=== PATIENT | female | born 1965 | race Caucasian/White ===

== ENCOUNTER 2017-02-21 14:11 | Emergency (ER) | payer OTHER ==
[~2017-02-21] VITALS: Ht 167.6 cm; Wt 95.0 kg
[~2017-02-21 14:11] MED LIST: ANT25 PO; CLN150 PO; IBUP-1050 PO
[2017-02-21 14:41] VITALS: TEMP 37.3; Ht 167.6 cm; Wt 95.0 kg
[2017-02-21] MEDS ORDERED: SODIUM CHLORIDE 0.9% 1000ML 1,000 ML IV STA (15:21)
[2017-02-21 15:46] LABS: BASO % 0.2 %; BASO ABS # 0.02 K/uL (0-0.2); COMPLETE YES; EOS % 0.5 %; HEMATOCRIT 35.3 % (37-47); IG% 0.2 %; LYMPH % 18.1 %; LYMPH ABS # 1.51 K/uL (1.2-3.4); MEAN CELL VOLUME 89.8 fL (80-100); MEAN CORPUSCULAR HEMOGLOBIN 29.8 pg (25-34); MEAN CORPUSCULAR HGB CONC 33.1 g/dl (32-36); MEAN PLATELET VOLUME 9.8 fL (7.4-10.4); PLATELET COUNT 248 K/uL (130-400); RED BLOOD COUNT 3.93 M/uL (4.2-5.4); WHITE BLOOD COUNT 8.36 K/uL (4.8-10.8)
[2017-02-21] MEDS ORDERED: ACET-1311 PO (15:46)
[2017-02-21 16:06] LABS: BUN/CREATININE RATIO 15.3 (10-20); CREATININE 0.77 mg/dl (0.60-1.20); POTASSIUM 3.6 mmol/L (3.5-5.1)
[2017-02-21 16:10] LABS: PREG INTERNAL NEGATIVE QC NEG CLEAR BACKGROUND; PREG INTERNAL POSITIVE QC POS CONTROL LINE
--- NOTE | 2017-02-21 16:23 | DIAGNOSTIC IMAGING REPORT ---
CT SCAN OF THE ABDOMEN AND PELVIS WITHOUT CONTRAST CLINICAL HISTORY: Left flank pain COMPARISON STUDY: No previous studies for comparison. TECHNIQUE: CT scan of the abdomen and pelvis was performed from the lung bases to the proximal femurs. Images are reviewed in the axial, sagittal, and coronal planes. IV contrast was not administered for this examination. CT DOSE: 1024.76 mGycm FINDINGS: Lower chest: There is mild bibasilar atelectasis. There is a small fat-containing left-sided Bochdalek hernia. Liver: There is subtle hypodensity present within the posterior aspect of the right lobe of the liver. While not definite, I suspect that this is artifactual. Gallbladder: Surgically absent Spleen: Normal in size and attenuation. Pancreas: Unremarkable. Adrenal glands: Unremarkable. Kidneys: No renal calculi are visualized. There are atrophic changes with thin the medial aspect of the upper pole of the left kidney. An angiomyolipoma could appear similar but is felt to be less likely. No ureteral or bladder calculi are visualized. Bowel: There are no transition zones indicate bowel obstruction. The appendix appears normal. There is no acute diverticulitis. Peritoneum: There is no intraperitoneal free air or abdominal ascites. There is a small fat-containing umbilical hernia. Vasculature: The abdominal aorta is normal in course and caliber. Adenopathy: There are small pelvic lymph nodes at the upper limits of normal in size. There is no pathologic adenopathy by size criteria. Pelvic viscera: The bladder, and pelvic viscera are unremarkable. Skeletal structures: No destructive osseous lesions are seen. IMPRESSION: 1. No renal, ureteral, or lateral calculi identified 2. No evidence of bowel obstruction. No evidence of free air 3. Normal appendix. No evidence of acute diverticulitis 4. Fatty replacement of the medial cortex of the upper pole the left kidney, likely secondary to scarring/atrophy. Electronically signed by: Mihai Conley M.D. 02/21/2017 4:22 PM Dictated Date/Time: 02/21/2017 4:05 PM
[2017-02-21 17:02] LABS: URINE APPEARANCE CLEAR (CLEAR); URINE BILIRUBIN NEG (NEG); URINE COLOR YELLOW; URINE NITRITE NEG (NEG); URINE PH 6.5 (4.5-7.5); URINE SPECIFIC GRAVITY 1.008 (1.000-1.030); UROBILINOGEN NEG (NEG); ZZUR CULT IF INDIC CLEAN CATCH YES
[2017-02-21 17:03] LABS: MANUAL MICROSCOPIC REQUIRED? NO; REVIEW REQ? NO
[2017-02-21] MEDS ORDERED: CEFTRIAXONE SOD INJ 1 GM ADDVIAL IV STA (17:09)
[2017-02-21 18:33] VITALS: BP 110/60; PULSE 65; O2SAT 97
[2017-02-21] MEDS ORDERED: SULFAMETHOXAZOLE/TRIMETHOPRIM DS 800/160MG TAB PO STA (18:54)
[2017-02-21] MEDS ORDERED: SULF800T23 PO (19:00)
--- NOTE | 2017-02-22 00:24 | EMERGENCY ROOM VISIT NOTE ---
History Report prepared by Rahul: Alex Narvaez Under the Supervision of: Dr. Jalen Hummel M.D. First contact with patient: 15:21 Chief Complaint: FLANK PAIN Stated Complaint: LEFT KIDNEY PAIN History of Present Illness The patient is a 51 year old female who presents to the Emergency Room with complaints of waxing and waning bilateral flank pain beginning several hours prior to arrival. She currently rates her discomfort as a 2/10 in severity. The patient associates nausea with today's symptoms. She states the pain began this morning, in which, the left flank pain was worse than the right. The patient notes she went to Dr. Colunga's office, who found hematuria. She states the provider referred the patient to the ED for a work up with concern for a kidney stone and/or kidney infection. The patient also complains of flu-like symptoms beginning five days ago that includes body aches, headache, hot and cold flashes , decreased appetite, and right gland pain. Pt denies LOC, fever, diaphoresis, visual changes, neck pain, chest pain, breathing difficulties, vomiting, abdominal pain, melena, hematochezia, numbness, weakness, rash, or other complaints. Source of History: patient Onset: several hours [employer] Position: back (bilateral flank) Symptom Intensity: 2/10 Timing: waxes/wanes Associated Symptoms: + back pain, + headache, + nausea Note: Associated symptoms: body aches, hot and cold flashes, decreased appetite, and right gland pain Review of Systems See HPI for pertinent positives and negatives. A total of ten systems were reviewed and were otherwise negative. Past Medical & Surgical Medical Problems: (1) Rotator cuff arthropathy (2) Vertigo Surgical Problems: (1) S/P cholecystectomy (2) S/P tubal ligation Family History Cancer Diabetes mellitus Social History Smoking Status: Never Smoker Alcohol Use: occasionally Marital Status: Housing Status: lives with family Occupation Status: employed Current/Historical Medications Scheduled Sulfa/Trimethoprim (Bactrim Ds 800MG/160MG), 1 TAB PO BID Scheduled PRN Acetaminophen (Tylenol), 650 MG PO Q6 PRN for Pain Allergies Coded Allergies: No Known Allergies (Verified , 02/21/17) Physical Exam Vital Signs Date Time Temp Pulse Resp B/P Pulse Ox O2 Delivery O2 Flow Rate FiO2 02/21/17 18:33 65 16 110/60 97 Room Air 02/21/17 16:50 68 16 120/63 97 Room Air 02/21/17 14:41 37.3 86 20 109/74 96 Room Air Physical Exam GENERAL: Awake, alert, well-appearing, in no distress HENT: Normocephalic, atraumatic. Oropharynx unremarkable. EYES: Normal conjunctiva. Sclera non-icteric. NECK: Supple. No nuchal rigidity. FROM. No JVD. RESPIRATORY: Clear to auscultation. CARDIAC: Regular rate, normal rhythm. Extremities warm and well perfused. Pulses equal. ABDOMEN: Soft, non-distended. No tenderness to palpation. No rebound or guarding. No masses. RECTAL: Deferred. MUSCULOSKELETAL: Chest examination reveals no tenderness. The back is symmetrical on inspection without obvious abnormality. Left CVA tenderness to palpation. No joint edema. LOWER EXTREMITIES: Calves are equal size bilaterally and non-tender. No edema. No discoloration. NEURO: Normal sensorium. No sensory or motor deficits noted. SKIN: No rash or jaundice noted. Medical Decision & Procedures ER Provider Diagnostic Interpretation: CT: Radiology results as stated below per my review and radiologist interpretation CT SCAN OF THE ABDOMEN AND PELVIS WITHOUT CONTRAST CLINICAL HISTORY: Left flank pain COMPARISON STUDY: No previous studies for comparison. TECHNIQUE: CT scan of the abdomen and pelvis was performed from the lung bases to the proximal femurs. Images are reviewed in the axial, sagittal, and coronal planes. IV contrast was not administered for this examination. CT DOSE: 1024.76 mGycm FINDINGS: Lower chest: There is mild bibasilar atelectasis. There is a small fat-containing left-sided Bochdalek hernia. Liver: There is subtle hypodensity present within the posterior aspect of the right lobe of the liver. While not definite, I suspect that this is artifactual. Gallbladder: Surgically absent Spleen: Normal in size and attenuation. Pancreas: Unremarkable. Adrenal glands: Unremarkable. Kidneys: No renal calculi are visualized. There are atrophic changes with thin the medial aspect of the upper pole of the left kidney. An angiomyolipoma could appear similar but is felt to be less likely. No ureteral or bladder calculi are visualized. Bowel: There are no transition zones indicate bowel obstruction. The appendix appears normal. There is no acute diverticulitis. Peritoneum: There is no intraperitoneal free air or abdominal ascites. There is a small fat-containing umbilical hernia. Vasculature: The abdominal aorta is normal in course and caliber. Adenopathy: There are small pelvic lymph nodes at the upper limits of normal in size. There is no pathologic adenopathy by size criteria. Pelvic viscera: The bladder, and pelvic viscera are unremarkable. Skeletal structures: No destructive osseous lesions are seen. IMPRESSION: 1. No renal, ureteral, or lateral calculi identified 2. No evidence of bowel obstruction. No evidence of free air 3. Normal appendix. No evidence of acute diverticulitis 4. Fatty replacement of the medial cortex of the upper pole the left kidney, likely secondary to scarring/atrophy. Electronically signed by: Mihai Conley M.D. 02/21/2017 4:22 PM Laboratory Results 02/21/17 15:30 Red Blood Count 3.93, Mean Corpuscular Volume 89.8, Mean Corpuscular Hemoglobin 29.8, Mean Corpuscular Hemoglobin Concent 33.1, Mean Platelet Volume 9.8, Neutrophils (%) (Auto) 70.0, Lymphocytes (%) (Auto) 18.1, Monocytes (%) (Auto) 11.0, Eosinophils (%) (Auto) 0.5, Basophils (%) (Auto) 0.2, Neutrophils # (Auto ) 5.85, Lymphocytes # (Auto) 1.51, Monocytes # (Auto) 0.92, Eosinophils # (Auto ) 0.04, Basophils # (Auto) 0.02 02/21/17 15:30 Test 02/21/17 15:30 02/21/17 16:40 White Blood Count 8.36 K/uL (4.8-10.8) Red Blood Count 3.93 M/uL (4.2-5.4) Hemoglobin 11.7 g/dL (12.0-16.0) Hematocrit 35.3 % (37-47) Mean Corpuscular Volume 89.8 fL (80-100) Mean Corpuscular Hemoglobin 29.8 pg (25-34) Mean Corpuscular Hemoglobin Concent 33.1 g/dl (32-36) Platelet Count 248 K/uL (130-400) Mean Platelet Volume 9.8 fL (7.4-10.4) Neutrophils (%) (Auto) 70.0 % Lymphocytes (%) (Auto) 18.1 % Monocytes (%) (Auto) 11.0 % Eosinophils (%) (Auto) 0.5 % Basophils (%) (Auto) 0.2 % Neutrophils # (Auto) 5.85 K/uL (1.4-6.5) Lymphocytes # (Auto) 1.51 K/uL (1.2-3.4) Monocytes # (Auto) 0.92 K/uL (0.11-0.59) Eosinophils # (Auto) 0.04 K/uL (0-0.5) Basophils # (Auto) 0.02 K/uL (0-0.2) RDW Standard Deviation 44.7 fL (36.4-46.3) RDW Coefficient of Variation 13.5 % (11.5-14.5) Immature Granulocyte % (Auto) 0.2 % Immature Granulocyte # (Auto) 0.02 K/uL (0.00-0.02) Anion Gap 4.0 mmol/L (3-11) Est Creatinine Clear Calc Drug Dose 101.5 ml/min Estimated GFR () 104.3 Estimated GFR (Non- 90.0 BUN/Creatinine Ratio 15.3 (10-20) Calcium Level 9.0 mg/dl (8.5-10.1) Total Bilirubin 0.3 mg/dl (0.2-1) Direct Bilirubin 0.1 mg/dl (0-0.2) Aspartate Amino Transf (AST/SGOT) 24 U/L (15-37) Alanine Aminotransferase (ALT/SGPT) 46 U/L (12-78) Alkaline Phosphatase 111 U/L (45-117) Total Protein 7.9 gm/dl (6.4-8.2) Albumin 3.1 gm/dl (3.4-5.0) Lipase 106 U/L (73-393) Human Chorionic Gonadotropin, Qual NEG (NEG) Urine Color YELLOW Urine Appearance CLEAR (CLEAR) Urine pH 6.5 (4.5-7.5) Urine Specific [place] 1.008 (1.000-1.030) Urine Protein NEG (NEG) Urine Glucose (UA) NEG (NEG) Urine Ketones NEG (NEG) Urine Occult Blood TRACE (NEG) Urine Nitrite NEG (NEG) Urine Bilirubin NEG (NEG) Urine Urobilinogen NEG (NEG) Urine Leukocyte Esterase LARGE (NEG) Urine WBC (Auto) >30 /hpf (0-5) Urine RBC (Auto) 0-4 /hpf (0-4) Urine Hyaline Casts (Auto) 0 /lpf (0-5) Urine Epithelial Cells (Auto) 10-20 /lpf (0-5) Urine Bacteria (Auto) 3+ (NEG) Laboratory results reviewed by me Medications Administered Medications (Trade) Dose Ordered Sig/Ave Route Start Time Stop Time Status Last Admin Dose Admin Sodium Chloride (Nss 1000ml) 1,000 ml @ 125 mls/hr Q8H STAT IV 02/21/17 15:21 02/21/17 20:01 DC 02/21/17 15:21 125 MLS/HR Ceftriaxone Sodium (Rocephin Inj) 1 gm NOW STAT IV 02/21/17 17:09 02/21/17 17:12 DC 02/21/17 17:19 1 GM Trimethoprim/ Sulfamethoxazole (Septra Ds 800/ 160MG Tab) 1 tab NOW STAT PO 02/21/17 18:54 02/21/17 18:55 DC 02/21/17 19:03 1 TAB ED Course 1521: Ordered Sodium Chloride 1,000 ml @ 125 mls/hr IV. 1538: The patient was evaluated in room B12B. A complete history and physical exam was performed. 1709: Ordered Rocephin Inj 1 gm IV. 1715: Reevaluated and updated the patient at this time, and she is feeling better. 1854: Ordered Trimethoprim/Sulfamethoxazole 1 tab PO. 1856: I reevaluated the patient, and he is feeling well. Discussed results and discharge instructions: He verbalized understanding and agreement. The patient is ready for discharge. Medical Decision Prior records/ancillary studies reviewed. Triage Nursing notes reviewed and agree them. Additional history obtained from the family. The patient's history was concerning for flank and abdominal pain. Differential diagnosis: Etiologies such as renal colic, appendicitis, diverticulitis, mesenteric ischemia, aortic pathology, infections, inflammatory bowel disease, PUD, biliary pathology, UTI, as well as others were entertained. Physical examination findings: As above. ER treatment provided: Patient declined analgesia IV hydration with normal saline IV Rocephin On reassessment the patient felt better. Diagnostic interpretation by me: The labs revealed an unremarkable CBC except for mild anemia. Urinalysis is concerning for infection. Her chemistry panel, LFTs, lipase and test were negative. Urinalysis revealed hematuria. There was no sign of UTI. Imaging studies: CT of the abdomen and pelvis as above. It appears that the patient has mild pyelonephritis with the flank pain and findings concerning for infection. No sign of kidney stone. Clinically she looks well. I will treat her with Bactrim as an outpatient. By the evaluation outlined above emergent etiologies such as appendicitis, diverticulitis, mesenteric ischemia, aortic pathology, infections, inflammatory bowel disease, PUD, biliary pathology, ureterolithiasis as well as others were deemed relatively unlikely. The patient was informed about the findings as listed above. All questions were answered and she was pleased with the treatment. Return instructions were outlined and the patient was discharged in stable condition. Outpatient prescription management: Bactrim Patient declined prescription pain medicine Referral: The patient was referred back to her primary care physician for follow-up in 3 days for a recheck of the current condition. The chart was completed utilizing [employer] Speech voice recognition software. Grammatical errors, random word insertions, pronoun errors, and incomplete sentences are an occasional consequence of this system due to software limitations, ambient noise, and hardware issues. Any formal questions or concerns about the content, text, or information contained within the body of this dictation should be directly addressed to the physician for clarification. Impression Primary Impression: Pyelonephritis Additional Impression: Left flank pain Scribe Attestation The scribe's documentation has been prepared under my direction and personally reviewed by me in its entirety. I confirm that the note above accurately reflects all work, treatment, procedures, and medical decision making performed by me. Departure Information Dispostion Home / Self-Care Prescriptions Sulfa/Trimethoprim (Bactrim Ds 800MG/160MG) Tab 1 TAB PO BID, #13 TAB Prov: Jalen Hummel MD 02/21/17 Referrals Meghan Shultz D.O. (PCP) Forms HOME CARE DOCUMENTATION FORM, IMPORTANT VISIT INFORMATION Patient Instructions My [facility] Additional Instructions URINARY TRACT INFECTION INSTRUCTIONS: Trimethoprim-Sulfamethoxazole(Bactrim DS): Take one pill twice daily for 7 days for your urine infection. All antibiotics can cause diarrhea. If this occurs and you feel worse or it does not resolve in 1-2 days follow up with your doctor or return to the Emergency Department as this could be signs of serious underlying problems. Any medication can cause an allergic reaction, stop the pills immediately and return to the ER for rash, hives, breathing difficulties, or swelling. Ibuprofen(Motrin, Advil) may be used for fever or pain. Use 600mg every six hours as needed. Take with food. Avoid using more than 2400mg in a 24 hour period. Do not use 2400mg per day for more than three consecutive days without physician direction. Prolonged inappropriate use can lead to stomach upset or ulcers. (AND/OR) Acetaminophen(Tylenol) may be used for fever or pain. Use 1000mg every six hours as needed. Avoid using more than 4000mg in a 24 hour period. Rest and drink plenty of fluids. Continue current medications. Return to the ER immediately for worsening or persistent abdominal pain, vomiting, fevers, back or flank pain, worsening of your condition, or as needed. Follow up with your primary physician within 3 days for a recheck of the current condition. Problem Qualifiers
== END 2017-02-21 19:04 | disposition home or self-care (01) ==
LOC: C.EDB 14:12
DX: N11.1 Chronic obstructive pyelonephritis (principal); Z98.51 Tubal ligation status; Z90.49 Acquired absence of other specified parts of digestive tract; Z80.9 Family history of malignant neoplasm, unspecified; Z83.3 Family history of diabetes mellitus

== ENCOUNTER 2017-03-04 12:38 | Emergency (ER) | payer OTHER ==
[~2017-03-04] VITALS: Ht 165.1 cm; Wt 93.0 kg
[~2017-03-04 12:38] MED LIST changes: +ACET-1311 PO; -ANT25 PO; -CLN150 PO; -IBUP-1050 PO; +SULF800T23 PO
[2017-03-04 12:44] VITALS: TEMP 36.8; Ht 165.1 cm; Wt 93.0 kg
[2017-03-04] MEDS ORDERED: KETOROLAC TROMETHAMINE 30 MG/ML VIAL IV STA (12:59)
[2017-03-04] MEDS ORDERED: HYDROmorphone INJ 1 MG/ML SYR IV STA (12:59)
[2017-03-04] MEDS ORDERED: SODIUM CHLORIDE 0.9% 1000ML 1,000 ML IV STA (12:59)
[2017-03-04] MEDS ORDERED: METOCLOPRAMIDE HCL INJ 5 MG/ML 2 ML VIAL IV STA (12:59)
--- NOTE | 2017-03-04 13:13 | EMERGENCY ROOM VISIT NOTE ---
History Report prepared by Rahul: Kavon Ureña Under the Supervision of: Dr. Betito Nava M.D. First contact with patient: 12:46 Chief Complaint: ABDOMINAL PAIN Stated Complaint: BOTH KIDNEY PAIN Nursing Triage Summary: pt sent in for bilateral flank pain and was being treated for one but feels pain is getting worse and is now on bilateral sides History of Present Illness The patient is a 51 year old female who presents to the Emergency Room with complaints of constant bilateral flank pain beginning yesterday. She currently rates her discomfort as a 5/10 in severity. The patient states that she is currently on her menstrual cycle, is experiencing abdominal cramps, but denies any chance of retaining a tampon. She reports that she had a CT scan 10 days ago and was put on Bactrim that she finished yesterday. The patient notes that she has a history of a cholecystectomy but denies an appendectomy. She denies a burning sensation and changes in her urinary frequency. The patient reports that she has not seen a federal court of appeals law clerk or urologist about her current symptoms. Source of History: patient Onset: yesterday Position: back (bilateral flank) Quality: other (5/10) Timing: constant Associated Symptoms: + abdominal pain (cramps), No urinary symptoms Review of Systems See HPI for pertinent positives & negatives. A total of 10 systems reviewed and were otherwise negative. Past Medical & Surgical Medical Problems: (1) Rotator cuff arthropathy (2) Vertigo Surgical Problems: (1) S/P cholecystectomy (2) S/P tubal ligation Family History Cancer Diabetes mellitus Social History Smoking Status: Never Smoker Alcohol Use: occasionally Marital Status: Housing Status: lives with family Occupation Status: employed Current/Historical Medications Scheduled Ibuprofen Tab (Advil), 600 MG PO Q6H Sulindac (Clinoril), Unknown Dose PO BID Scheduled PRN Acetaminophen (Tylenol), 650 MG PO Q6 PRN for Pain Meclizine Hcl (Meclizine Hcl), Unknown Dose PO for Dizziness or Vertigo Oxycodone/Acetaminophen 5MG/325MG (Percocet 5MG/325MG), 1-2 TAB PO Q4H PRN for Pain Allergies Coded Allergies: No Known Allergies (Verified , 03/04/17) Physical Exam Vital Signs Date Time Temp Pulse Resp B/P Pulse Ox O2 Delivery O2 Flow Rate FiO2 03/04/17 15:15 55 18 99/59 97 03/04/17 14:31 60 14 125/72 92 Room Air 03/04/17 14:07 56 03/04/17 12:44 36.8 74 16 139/89 95 Room Air Physical Exam GENERAL: Patient is a healthy-appearing well-nourished HEAD: Normocephalic atraumatic EYES: Ocular movements intact pupils equal and react to light OROPHARYNX mucous membranes are moist no exudates present no erythema or edema present NECK: Supple no nuchal rigidity CHEST: Good equal expansion LUNGS: Clear and equal to auscultation CARDIAC: Normal S1 and S2 ABDOMEN: Soft nontender no guarding BACK: No CVA tenderness EXTREMITIES: No pain upon palpation normal muscle strength in all groups no clubbing cyanosis or edema NEURO: Patient is following commands is answering questions appropriately. Alert and oriented x3 Cranial Nerves 2-12 grossly intact Medical Decision & Procedures ER Provider Diagnostic Interpretation: Radiology results as stated below per my review and radiologist interpretation: KUB CLINICAL HISTORY: Pt c/o b/l flank pain pain COMPARISON STUDY: None FINDINGS: The soft tissues, psoas shadows, renal outlines and intestinal gas pattern appear normal. There is no evidence for bowel obstruction. No abnormal abdominal calcifications are seen. IMPRESSION: Normal study. Electronically signed by: Marco Camilo M.D. 03/04/2017 2:00 PM Dictated Date/Time: 03/04/2017 1:55 PM RENAL ULTRASOUND HISTORY: Pain Pt c/o b/l flank pain COMPARISON: None. FINDINGS: Right kidney: Maximum dimension 11.8 cm. No evidence for hydronephrosis. Normal corticomedullary differentiation and cortical thickness. Left kidney: Maximum dimension 8.2 cm. No evidence for hydronephrosis. Normal corticomedullary differentiation and cortical thickness. Bladder: No bladder wall thickening. The bilateral ureteral jets were identified. IMPRESSION: Normal renal ultrasound. Electronically signed by: Marco Camilo M.D. 03/04/2017 1:53 PM Dictated Date/Time: 03/04/2017 1:52 PM Laboratory Results 03/04/17 13:00 Red Blood Count 4.38, Mean Corpuscular Volume 90.0, Mean Corpuscular Hemoglobin 29.2, Mean Corpuscular Hemoglobin Concent 32.5, Mean Platelet Volume 10.1, Neutrophils (%) (Auto) 64.9, Lymphocytes (%) (Auto) 28.2, Monocytes (%) (Auto) 5.8, Eosinophils (%) (Auto) 0.5, Basophils (%) (Auto) 0.4, Neutrophils # (Auto) 6.56, Lymphocytes # (Auto) 2.85, Monocytes # (Auto) 0.59, Eosinophils # (Auto) 0.05, Basophils # (Auto) 0.04 03/04/17 13:00 Test 03/04/17 13:00 03/04/17 13:58 White Blood Count 10.11 K/uL (4.8-10.8) Red Blood Count 4.38 M/uL (4.2-5.4) Hemoglobin 12.8 g/dL (12.0-16.0) Hematocrit 39.4 % (37-47) Mean Corpuscular Volume 90.0 fL (80-100) Mean Corpuscular Hemoglobin 29.2 pg (25-34) Mean Corpuscular Hemoglobin Concent 32.5 g/dl (32-36) Platelet Count 385 K/uL (130-400) Mean Platelet Volume 10.1 fL (7.4-10.4) Neutrophils (%) (Auto) 64.9 % Lymphocytes (%) (Auto) 28.2 % Monocytes (%) (Auto) 5.8 % Eosinophils (%) (Auto) 0.5 % Basophils (%) (Auto) 0.4 % Neutrophils # (Auto) 6.56 K/uL (1.4-6.5) Lymphocytes # (Auto) 2.85 K/uL (1.2-3.4) Monocytes # (Auto) 0.59 K/uL (0.11-0.59) Eosinophils # (Auto) 0.05 K/uL (0-0.5) Basophils # (Auto) 0.04 K/uL (0-0.2) RDW Standard Deviation 45.9 fL (36.4-46.3) RDW Coefficient of Variation 14.0 % (11.5-14.5) Immature Granulocyte % (Auto) 0.2 % Immature Granulocyte # (Auto) 0.02 K/uL (0.00-0.02) Anion Gap 7.0 mmol/L (3-11) Est Creatinine Clear Calc Drug Dose 101.2 ml/min Estimated GFR () 107.7 Estimated GFR (Non- 92.9 BUN/Creatinine Ratio 22.1 (10-20) Calcium Level 9.0 mg/dl (8.5-10.1) Total Bilirubin 0.4 mg/dl (0.2-1) Direct Bilirubin < 0.1 mg/dl (0-0.2) Aspartate Amino Transf (AST/SGOT) 15 U/L (15-37) Alanine Aminotransferase (ALT/SGPT) 24 U/L (12-78) Alkaline Phosphatase 88 U/L (45-117) Total Protein 8.3 gm/dl (6.4-8.2) Albumin 3.8 gm/dl (3.4-5.0) Lipase 149 U/L (73-393) Urine Color DK YELLOW Urine Appearance CLEAR (CLEAR) Urine pH 5.0 (4.5-7.5) Urine Specific [place] 1.037 (1.000-1.030) Urine Protein 1+ (NEG) Urine Glucose (UA) NEG (NEG) Urine Ketones TRACE (NEG) Urine Occult Blood 3+ (NEG) Urine Nitrite NEG (NEG) Urine Bilirubin NEG (NEG) Urine Urobilinogen NEG (NEG) Urine Leukocyte Esterase NEG (NEG) Urine WBC (Auto) 1-5 /hpf (0-5) Urine RBC (Auto) 5-10 /hpf (0-4) Urine Hyaline Casts (Auto) 5-10 /lpf (0-5) Urine Epithelial Cells (Auto) >30 /lpf (0-5) Urine Bacteria (Auto) NEG (NEG) Urine Test NEG (NEG) Labs reviewed by ED physician. Medications Administered Medications (Trade) Dose Ordered Sig/Ave Route Start Time Stop Time Status Last Admin Dose Admin Sodium Chloride (Nss 1000ml) 1,000 ml @ 999 mls/hr Q1H1M STAT IV 03/04/17 12:59 03/04/17 13:59 DC 03/04/17 13:04 999 MLS/HR Ketorolac Tromethamine (Toradol Inj) 30 mg NOW STAT IV 03/04/17 12:59 03/04/17 13:02 DC 03/04/17 13:11 30 MG Hydromorphone HCl (Dilaudid Inj) 1 mg NOW STAT IV 03/04/17 12:59 03/04/17 13:02 DC 03/04/17 13:10 1 MG Metoclopramide HCl (Reglan Inj) 10 mg NOW STAT IV 03/04/17 12:59 03/04/17 13:02 DC 03/04/17 13:10 10 MG ED Course 1257: Past medical records reviewed. The patient was evaluated in room C10. A complete history and physical examination was performed. 1259: Ordered Reglan Inj 10 mg IV, Dilaudid Inj 1 mg IV, Toradol Inj 30 mg IV, Sodium Chloride 1000 ml @ 999 mls/hr IV. 1405: I reevaluated the patient and updated her about her treatment plan. 1445: I reevaluated the patient and she is doing better. I discussed the exam findings and treatment plan. She verbalized complete understanding and is ready to go home. Medical Decision Differential diagnosis: Etiologies such as appendicitis, diverticulitis, PUD, biliary pathology, UTI, pancreatitis, obstruction, mesenteric ischemia, aortic pathology, infections, inflammatory bowel disease, renal colic, as well as others were entertained. This is a 51-year-old female who presents emergency department complaining of bilateral lower back pain. The patient's back pain is in her lumbar area. She has no tenderness to the midline of the spine and no CVA tenderness. The patient was recently diagnosed with the UTI and had been placed on Bactrim. I will note she does not have an elevation in her white blood count and CBC has a normal renal profile normal liver profile as well as a normal lipase. She just had a CAT scan of the abdomen and pelvis several weeks ago. She also has a benign abdominal examination. Serial abdominal examinations were performed on the patient in the emergency department and at no time did she exhibit surgical abdomen or abdominal tenderness. An IV was established, patient given normal saline bolus, Toradol, Dilaudid. Repeat examination revealed improvement the patient's symptoms. The patient does have some blood in her urine however is having her period. She is not . She denies any urinary symptoms. Based on this finding I felt we could send the patient's urine for urine culture. She will be given pain medication for home. Patient was in agreement with the treatment plan. Impression Primary Impression: Lumbar back pain Scribe Attestation The scribe's documentation has been prepared under my direction and personally reviewed by me in its entirety. I confirm that the note above accurately reflects all work, treatment, procedures, and medical decision making performed by me. Departure Information Dispostion Home / Self-Care Prescriptions Oxycodone/Acetaminophen 5MG/325MG (PERCOCET 5MG/325MG) Tab 1-2 TAB PO Q4H Y for Pain, #14 TAB Prov: Betito Nava MD 03/04/17 Referrals Meghan Shultz D.O. (PCP) Forms Call Back Authorization, HOME CARE DOCUMENTATION FORM, IMPORTANT VISIT INFORMATION, School Instructions, Work Instructions Patient Instructions ED Back Care Tips, ED Sprain Strain Lumbar, Exercises Back Lower Back Stretch, [facility] Additional Instructions You received narcotic or benzodiazepene medication while in the emergency room today. Do not drive, operate heavy machinery, or drink alcohol under the influence of this medication. Take 600 mg Ibuprofen every 6 hours Take Percocet for breakthrough pain Radiographs and CTs will be reread by a radiologist in the morning. Culture results are usually available in approx 48 hours You have been examined and treated today on an emergency basis only. This is not a substitute for, or an effort to provide, complete comprehensive medical care. It is impossible to recognize and treat all injuries or illnesses in a single emergency department visit. It is therefore important that you follow up closely with Dr Shultz. Call as soon as possible for an appointment. Thank you for your time and consideration. I look forward to speaking with you again soon. Please don't hesitate to call us if you have any questions. Problem Qualifiers Primary Impression: Lumbar back pain Chronicity: acute Back pain laterality: bilateral Sciatica presence: without sciatica Qualified Codes: M54.5 - Low back pain
[2017-03-04 13:22] LABS: BASO % 0.4 %; BASO ABS # 0.04 K/uL (0-0.2); COMPLETE YES; EOS % 0.5 %; HEMATOCRIT 39.4 % (37-47); IG% 0.2 %; LYMPH % 28.2 %; LYMPH ABS # 2.85 K/uL (1.2-3.4); MEAN CORPUSCULAR HEMOGLOBIN 29.2 pg (25-34); MEAN CORPUSCULAR HGB CONC 32.5 g/dl (32-36); MEAN PLATELET VOLUME 10.1 fL (7.4-10.4); MONO % 5.8 %; NEUT % 64.9 %; PLATELET COUNT 385 K/uL (130-400); RED BLOOD COUNT 4.38 M/uL (4.2-5.4); WHITE BLOOD COUNT 10.11 K/uL (4.8-10.8)
[2017-03-04] MEDS ORDERED: MECL1TAB40 PO (13:29)
[2017-03-04] MEDS ORDERED: SULI150T PO (13:29)
[2017-03-04] MEDS ORDERED: IBUP-103 PO (13:29)
[2017-03-04 13:45] LABS: ALT/SGPT 24 U/L (12-78); AST/SGOT 15 U/L (15-37); BLOOD UREA NITROGEN 17 mg/dl (7-18); BUN/CREATININE RATIO 22.1 (10-20); CARBON DIOXIDE 26 mmol/L (21-32); CHLORIDE 106 mmol/L (98-107); CREATININE 0.75 mg/dl (0.60-1.20); GLUCOSE 86 mg/dl (70-99); POTASSIUM 4.2 mmol/L (3.5-5.1); SODIUM 139 mmol/L (136-145)
[2017-03-04 13:48] LABS: ALKALINE PHOSPHATASE 88 U/L (45-117)
--- NOTE | 2017-03-04 13:54 | DIAGNOSTIC IMAGING REPORT ---
RENAL ULTRASOUND HISTORY: Pain Pt c/o b/l flank pain COMPARISON: None. FINDINGS: Right kidney: Maximum dimension 11.8 cm. No evidence for hydronephrosis. Normal corticomedullary differentiation and cortical thickness. Left kidney: Maximum dimension 8.2 cm. No evidence for hydronephrosis. Normal corticomedullary differentiation and cortical thickness. Bladder: No bladder wall thickening. The bilateral ureteral jets were identified. IMPRESSION: Normal renal ultrasound. Electronically signed by: Marco Camilo M.D. 03/04/2017 1:53 PM Dictated Date/Time: 03/04/2017 1:52 PM
--- NOTE | 2017-03-04 14:01 | DIAGNOSTIC IMAGING REPORT ---
KUB CLINICAL HISTORY: Pt c/o b/l flank pain pain COMPARISON STUDY: None FINDINGS: The soft tissues, psoas shadows, renal outlines and intestinal gas pattern appear normal. There is no evidence for bowel obstruction. No abnormal abdominal calcifications are seen. IMPRESSION: Normal study. Electronically signed by: Marco Camilo M.D. 03/04/2017 2:00 PM Dictated Date/Time: 03/04/2017 1:55 PM
[2017-03-04 14:18] LABS: URINE APPEARANCE CLEAR (CLEAR); URINE COLOR DK YELLOW; URINE EPITHELIAL CELL AUTO >30 /lpf (0-5); URINE NITRITE NEG (NEG); URINE SPECIFIC GRAVITY 1.037 (1.000-1.030); UROBILINOGEN NEG (NEG); ZZUR CULT IF INDIC CLEAN CATCH NO
[2017-03-04 14:33] LABS: MANUAL MICROSCOPIC REQUIRED? NO; REVIEW REQ? NO; URINE BILIRUBIN NEG (NEG)
[2017-03-04] MEDS ORDERED: OXYC-57 PO (14:53)
[2017-03-04 15:15] VITALS: BP 99/59; PULSE 55; O2SAT 97
== END 2017-03-04 15:22 | disposition home or self-care (01) ==
LOC: C.EDB 12:40 → C.EDC 15:22
DX: M54.5 Low back pain (principal); R10.9 Unspecified abdominal pain; Z79.899 Other long term (current) drug therapy; Z83.3 Family history of diabetes mellitus

== ENCOUNTER → 2017-06-04 | Outpatient (CLI) | payer OTHER ==
[~2017-06-04] MED LIST changes: +IBUP-103 PO; +MECL1TAB40 PO; +OXYC-57 PO; -SULF800T23 PO; +SULI150T PO
--- NOTE | 2017-06-05 14:03 | MAMMOGRAPHY REPORT ---
BILATERAL DIGITAL SCREENING MAMMOGRAM TOMOSYNTHESIS WITH CAD: 06/04/2017 CLINICAL HISTORY: Routine screening. Patient has no complaints. TECHNIQUE: Breast tomosynthesis in addition to standard 2D mammography was performed. Current study was also evaluated with a Computer Aided Detection (CAD) system. COMPARISON: Comparison is made to exams dated: 06/03/2016 mammogram, 05/31/2015 mammogram, 05/30/2014 mamm ogram, 05/14/2013 mammogram, 03/27/2011 mammogram - [facility], and 10/04/2008. BREAST COMPOSITION: There are scattered areas of fibroglandular density in both breasts. FINDINGS: A focal asymmetry in the upper outer quadrant of the left breast appears similar to all becky ilable prior mammograms dating back to at least 03/27/2011, therefore likely benign. There are stabl e circumscribed subcentimeter masses in the lateral right breast. Scattered benign-appearing punctat e macro calcifications. No new suspicious mass, architectural distortion or cluster of microcalcific ations is seen. IMPRESSION: ACR BI-RADS CATEGORY 1: NEGATIVE There is no mammographic evidence of malignancy. A 1 year screening mammogram is recommended. The pa tient will receive written notification of the results. Approximately 10% of breast cancers are not detected with mammography. A negative mammographic report should not delay biopsy if a clinically suggestive mass is present. Lamar Mejia M.D. ay/:06/04/2017 16:46:12 Tile Machine Operator: Misa KUHN(Jani)(Mary), [facility] letter sent: Normal 1/2 BI-RADS Code: ACR BI-RADS Category 1: Negative
== END | disposition home or self-care (01) ==
LOC: C.MAMM 15:45
PROVIDERS: ATTEND Family Medicine
DX: Z12.31 Encounter for screening mammogram for malignant neoplasm of breast (principal)

== ENCOUNTER → 2018-06-08 | Outpatient (CLI) | payer OTHER ==
[~2018-06-08] MED LIST changes: -OXYC-57 PO
--- NOTE | 2018-06-09 14:58 | MAMMOGRAPHY REPORT ---
BILATERAL DIGITAL SCREENING MAMMOGRAM TOMOSYNTHESIS WITH CAD: 06/08/2018 CLINICAL HISTORY: Routine screening. TECHNIQUE: The study was acquired using full field digital technology and interpreted from soft copy. Breast tomosynthesis in addition to standard 2D mammography was performed. Current study was also ev aluated with a Computer Aided Detection (CAD) system. COMPARISON: Comparison is made to exams dated: 06/04/2017 mammogram, 06/03/2016 mammogram, 05/31/2015 mamm ogram, 05/30/2014 mammogram, 05/14/2013 mammogram, and 05/12/2012 mammogram - [facility] BREAST COMPOSITION: There are scattered areas of fibroglandular density in both breasts. FINDINGS: There are stable asymmetries bilaterally. Diffuse benign-appearing rounded punctate microc alcifications, and stable intramammary lymph nodes in the right upper outer posterior breast. No new suspicious mass, architectural distortion or cluster of microcalcifications is seen. IMPRESSION: ACR BI-RADS CATEGORY 1: NEGATIVE There is no mammographic evidence of malignancy. A 1 year screening mammogram is recommended.( 019) The patient will receive written notification of the results. Some breast cancers are not detected with mammography. A negative mammographic report should not marilee y biopsy if a clinically suggestive mass is present. Lamar Mejia M.D. ay/:06/08/2018 16:35:27 Chief Deputy Clerk/Bailiff: RT Jennifer(Jani)(M), [facility] letter sent: Normal 1/2 BI-RADS Code: ACR BI-RADS Category 1: Negative
== END | disposition home or self-care (01) ==
LOC: C.MAMM 15:42
PROVIDERS: ATTEND Family Medicine
DX: Z12.31 Encounter for screening mammogram for malignant neoplasm of breast (principal)

== ENCOUNTER 2022-11-19 12:17 | Observation (INO) ==
--- NOTE | 2022-11-19 12:33 | Emergency Department Note ---
Impression & Plan Chest pain, Abnormal EKG ED Provider Note NAME: INGA RICHARDS AGE: 57 SEX: F : 1965 ARRIVES VIA: Ambulance INFORMANT: Patient, ED PROVIDER(S): Cristian Topete DO CHIEF COMPLAINT: Chest discomfort HPI: The patient is a 57-year-old female who presented to the emergency department by ambulance for an evaluation of chest pain. The patient was treated with aspirin and nitroglycerin prior to arrival. She states she was having less chest pain when she first arrived to the emergency department and at this time the pain is all gone. She denies having any nausea or vomiting. She denies having any difficulty breathing. She denies having any lower extremity swelling. She denies having any back pain. She describes her discomfort as a pressure in her epigastric and lower chest region. She has no cardiac history and she has not seen her family doctor for the symptoms. ROS: See above HPI for pertinent positives & negatives. A total of 10 systems reviewed and were otherwise negative. PAST MEDICAL HISTORY: See Below PAST SURGICAL HISTORY: See Below FAMILY HISTORY: See Below SOCIAL HISTORY: See Below HOME MEDICATIONS: See Below ALLERGIES: See Below VITALS: See Below PHYSICAL EXAMINATION: GENERAL: Patient is awake alert in no acute distress patient is resting comfortably and showing no signs of anxiety EYES: The conjunctivae are clear. The pupils are round and reactive. EARS, NOSE, MOUTH AND THROAT: The nose is without any evidence of any deformity. NECK: The neck is nontender and supple. RESPIRATORY: Normal respiratory effort is noted there is no evidence of wheezing rhonchi or rales CARDIOVASCULAR: Regular rate and rhythm noted there no murmurs rubs or gallops normal S1 normal S2. GASTROINTESTINAL: The abdomen is soft. Abdomen is nontender. MUSCULOSKELETAL/EXTREMITIES: There is no evidence of gross deformity full range of motion is noted in the hips and shoulders. SKIN: There is no obvious evidence of any rash. There is no calf tenderness or swelling to palpation. NEUROLOGIC: Patient is awake alert and oriented x3 strength is symmetric patellar reflexes are 2+ bilaterally MEDICAL DECISION MAKING: The patient is a 57-year-old female who presented to the emergency department for an evaluation of chest pain. The patient had an acute onset of chest pain while she was at work. She did respond to aspirin as well as nitroglycerin. Her prehospital EKG did appear to be consistent with some inferior ischemia. I discussed the patient's laboratory and radiographic studies with her. I also discussed the limitations of the emergency department work-up for chest pain with her. Ultimately given the patient's response to medications as well as her abnormal EKG I discussed her condition with the on-call [facility] group. They have agreed to evaluate the patient in the emergency department for further management and disposition Triage Nursing notes reviewed. Prior medical records reviewed Vital Signs: reviewed and remarkable for no significant abnormalities Differential diagnosis: Cardiac ischemia, aortic dissection, pulmonary embolism, pneumothorax, pneumonia, pericarditis, myocarditis, esophageal rupture, GERD, cholecystitis, pancreatitis, musculoskeletal, as well as other pathologies. ER treatment provided: See below Diagnostics interpreted by me: ECG: EKG was obtained in the emergency department. My interpretation is normal sinus rhythm at 60 bpm. There is no ectopy. There was no acute ST segment abnormalities noted. This was compared to a tracing from April 30, 2011. No changes were noted. Prehospital EKG was obtained. My interpretation is normal sinus rhythm at [address] depressions were noted. There was also subtle ST segment abnormalities noted in the lower lateral leads. This is resolved upon arrival to the emergency department. Cardiac Monitoring: An order was placed for continuous cardiac monitoring. The monitor shows a rate of 71 bpm with sinus rhythm. Laboratory studies: As stated above and show below. Imaging studies: See below. Radiographic imaging was reviewed by myself Consultation(s): I discussed this case with Margarette who is on-call for the [facility] hospitalist group. Past Med/Surg History Medical History Kidney stones Surgical History (Updated 11/19/22 @ 18:16 by Margarette Su PA-C) History of gastric surgery S/P gastric surgery Family History (Updated 11/19/22 @ 18:15 by Margarette Su PA-C) Other Diabetes Social History Smoking Status: Smoker, status unknown Hx Alcohol Use: No Preferred Language: Brazilian Current Living Situation: Family Feels Safe at Home: Yes Allergies Allergies Allergy/AdvReac Type Severity Reaction Status Date / Time No Known Allergies Allergy Verified 03/04/17 13:26 Home Meds Home Medications Medication Instructions Recorded Confirmed acetaminophen 500 mg tablet 1,000 mg PO Q6H PRN Pain 08/10/18 11/19/22 cyclobenzaprine 10 mg tablet 10 mg PO DAILY PRN Muscle Spasm 08/10/18 11/19/22 desogestrel 0.15 mg-ethinyl 1 tab PO DAILY 08/10/18 11/19/22 estradiol 0.03 mg tablet enoxaparin 40 mg/0.4 mL 40 mg subcut DAILY 08/10/18 11/19/22 subcutaneous syringe meclizine 25 mg tablet 25 mg PO TID PRN Dizziness 08/10/18 11/19/22 omeprazole 20 mg capsule,delayed 20 mg PO DAILY 08/10/18 11/19/22 release ondansetron HCl 4 mg tablet 4 mg PO Q8H PRN Nausea 08/10/18 11/19/22 [id number] 45 mg-folic 1 cap PO DAILY 11/19/22 11/19/22 acid 800 mcg-vit K 120 mcg capsule (Bariatric Multivitamins) Results & Data (ED) Vital Signs Vital Signs - 24 hr 11/19/22 12:03 11/19/22 12:27 11/19/22 12:03 Temperature 36.8 C Temperature Source Oral Pulse Rate 71 Pulse Rate [Apical] Pulse Rate from SpO2 Sensor Pulse Rhythm Regular Pulse Rhythm [Apical] Pulse Strength Normal Respiratory Rate 18 Respiratory Effort / Characteristics Non-Labored Respiratory Depth Normal Blood Pressure 142/81 H Blood Pressure [Left Arm] Blood Pressure Mean 101 Blood Pressure Mean [Left Arm] Pulse Oximetry 97 97 97 Oxygen Delivery Method Room Air Room Air Sepsis Recent Fever Within 48 Hours No Sepsis New/Unexplained Change in Mental Status N/A Sepsis Action Taken by Nursing No Action Required 11/19/22 12:36 11/19/22 12:47 11/19/22 12:47 Temperature Temperature Source Pulse Rate 72 68 Pulse Rate [Apical] Pulse Rate from SpO2 Sensor 71 70 Pulse Rhythm Pulse Rhythm [Apical] Pulse Strength Respiratory Rate 17 23 Respiratory Effort / Characteristics Respiratory Depth Blood Pressure 101/66 Blood Pressure [Left Arm] Blood Pressure Mean 77 Blood Pressure Mean [Left Arm] Pulse Oximetry 91 96 Oxygen Delivery Method Sepsis Recent Fever Within 48 Hours Sepsis New/Unexplained Change in Mental Status Sepsis Action Taken by Nursing 11/19/22 13:00 11/19/22 13:00 11/19/22 13:30 Temperature Temperature Source Pulse Rate 59 L Pulse Rate [Apical] Pulse Rate from SpO2 Sensor 64 Pulse Rhythm Pulse Rhythm [Apical] Pulse Strength Respiratory Rate 16 Respiratory Effort / Characteristics Respiratory Depth Blood Pressure 93/64 L 95/57 L Blood Pressure [Left Arm] Blood Pressure Mean 73 69 Blood Pressure Mean [Left Arm] Pulse Oximetry 95 Oxygen Delivery Method Sepsis Recent Fever Within 48 Hours Sepsis New/Unexplained Change in Mental Status Sepsis Action Taken by Nursing 11/19/22 13:30 11/19/22 15:02 11/19/22 17:00 Temperature Temperature Source Pulse Rate 61 Pulse Rate [Apical] 70 71 Pulse Rate from SpO2 Sensor 61 Pulse Rhythm Pulse Rhythm [Apical] Regular Regular Pulse Strength Respiratory Rate 15 18 16 Respiratory Effort / Characteristics Non-Labored Spontaneous Non-Labored Spontaneous Respiratory Depth Normal Normal Blood Pressure Blood Pressure [Left Arm] 105/70 125/76 Blood Pressure Mean Blood Pressure Mean [Left Arm] 81 92 Pulse Oximetry 95 97 97 Oxygen Delivery Method Room Air Room Air Sepsis Recent Fever Within 48 Hours Sepsis New/Unexplained Change in Mental Status Sepsis Action Taken by Longterm Medications Current Medication List: was personally reviewed by me Laboratory Data Attestation: I reviewed the patient's lab results. 11/19/22 12:38 11/19/22 12:38 Lab Results 11/19/22 11/19/22 11/19/22 Range/Units 12:38 12:38 12:38 WBC 5.97 (4.8-10.8) K/ul RBC 4.16 (3.93-5.22) M/uL Hgb 13.1 (12.0-16.0) g/dl Hct 39.0 (34.1-44.9) % MCV 93.8 (80.0-100.0) fL MCH 31.5 (25.0-34.0) pg MCHC 33.6 (32.0-36.0) g/dL RDW Std Deviation 42.9 (36.4-46.3) fL RDW Coeff of Emma 12.3 (11.5-14.5) % Plt Count 205 (130-400) K/uL MPV 10.1 (9.4-12.3) fL Immature Gran % (Auto) 0.5 % Neut % (Auto) 56.9 % Lymph % (Auto) 31.5 % [place] % (Auto) 8.9 % Eos % (Auto) 1.7 % Baso % (Auto) 0.5 % Neut # (Auto) 3.40 (1.4-6.5) K/uL Lymph # (Auto) 1.88 (1.2-3.4) K/uL [place] # (Auto) 0.53 (0.24-0.82) K/uL Eos # (Auto) 0.10 (0-0.50) K/uL Baso # (Auto) 0.03 (0-0.2) K/uL Immature Gran # (Auto) 0.03 H (0.00-0.02) K/uL PT 10.5 (9.0-12.0) Seconds INR 1.0 (0.9-1.1) APTT 27.3 (21.0-31.0) Seconds PTT Ratio 1.0 Sodium 139 (136-145) mmol/L Potassium TNP Chloride 104 (98-107) mmol/L Carbon Dioxide 28 (21-32) mmol/L Anion Gap 7 (3-11) BUN 16 (6-23) mg/dl Creatinine 0.70 (0.6-1.2) mg/dl Est Cr Clr Drug Dosing 93.0 ml/min Est GFR ( Amer) 112.3 ml/min Est GFR (Non-Af Amer) 96.9 ml/min BUN/Creatinine Ratio 22.9 H (10-20) Glucose 85 (70-99(Fasting)) mg/dl Calcium 8.7 (8.5-10.1) mg/dl Total Bilirubin 0.8 (0.2-1.0) mg/dl AST TNP ALT 20 (7-52) U/L Alkaline Phosphatase 74 (34-104) U/L Troponin I High Sens < 2.3 (0-14) pg/ml Total Protein 6.8 (6.0-8.3) gm/dl Albumin 3.9 (3.4-5.0) gm/dl Globulin 2.9 (2.5-4.0) gm/dl Albumin/Globulin Ratio 1.3 (0.9-2) Lipase 18 (11-82) U/L SARS-CoV-2, RNA, NAAT (NEGATIVE) 11/19/22 11/19/22 11/19/22 Range/Units 12:38 15:01 18:10 WBC (4.8-10.8) K/ul RBC (3.93-5.22) M/uL Hgb (12.0-16.0) g/dl Hct (34.1-44.9) % MCV (80.0-100.0) fL MCH (25.0-34.0) pg MCHC (32.0-36.0) g/dL RDW Std Deviation (36.4-46.3) fL RDW Coeff of Emma (11.5-14.5) % Plt Count (130-400) K/uL MPV (9.4-12.3) fL Immature Gran % (Auto) % Neut % (Auto) % Lymph % (Auto) % [place] % (Auto) % Eos % (Auto) % Baso % (Auto) % Neut # (Auto) (1.4-6.5) K/uL Lymph # (Auto) (1.2-3.4) K/uL [place]lands # (Auto) (0.24-0.82) K/uL Eos # (Auto) (0-0.50) K/uL Baso # (Auto) (0-0.2) K/uL Immature Gran # (Auto) (0.00-0.02) K/uL PT (9.0-12.0) Seconds INR (0.9-1.1) APTT (21.0-31.0) Seconds PTT Ratio Sodium (136-145) mmol/L Potassium 3.5 Chloride (98-107) mmol/L Carbon Dioxide (21-32) mmol/L Anion Gap (3-11) BUN (6-23) mg/dl Creatinine (0.6-1.2) mg/dl Est Cr Clr Drug Dosing ml/min Est GFR ( Amer) ml/min Est GFR (Non-Af Amer) ml/min BUN/Creatinine Ratio (10-20) Glucose (70-99(Fasting)) mg/dl Calcium (8.5-10.1) mg/dl Total Bilirubin (0.2-1.0) mg/dl AST 25 ALT (7-52) U/L Alkaline Phosphatase (34-104) U/L Troponin I High Sens < 2.3 (0-14) pg/ml Total Protein (6.0-8.3) gm/dl Albumin (3.4-5.0) gm/dl Globulin (2.5-4.0) gm/dl Albumin/Globulin Ratio (0.9-2) Lipase (11-82) U/L SARS-CoV-2, RNA, NAAT NEGATIVE (NEGATIVE) Imaging Data Radiologist's Impression: Chest X-Ray 11/19/22 12:27 XR chest 1V portable HISTORY: 57 years-old Female Chest pain, nonspecific acute chest pain COMPARISON: 08/10/2018 TECHNIQUE: AP view of the chest FINDINGS: Cardiomediastinal and hilar silhouettes are within normal limits. No pneumothorax, pleural effusion, airspace consolidation or pulmonary edema. Bones appear grossly intact. IMPRESSION: No acute process. ACT 112: Negative or not required by law. The above report was generated using voice recognition software. It may contain grammatical, syntax or spelling errors. Electronically signed by: David Smith M.D. 11/19/2022 12:49 PM Discharge Plan Visit Data Chief Complaint: Chest Pain ED Provider: Cristian Topete Discharge Problem: Chest pain, Abnormal EKG Patient Disposition: Being Evaluated by Hospitalist Forms Stand Alone Forms: My [facility] [employer] Prescriptions Prescriptions: No Action cyclobenzaprine 10 mg tablet 10 mg PO DAILY PRN (Reason: Muscle Spasm) desogestrel-ethinyl estradiol [Apri] 0.15-0.03 mg tablet 1 tab PO DAILY ondansetron HCl 4 mg tablet 4 mg PO Q8H PRN (Reason: Nausea) acetaminophen 500 mg Tablet 1,000 mg PO Q6H PRN (Reason: Pain) meclizine 25 mg tablet 25 mg PO TID PRN (Reason: Dizziness) omeprazole 20 mg capsule,delayed release(DR/EC) 20 mg PO DAILY enoxaparin 40 mg/0.4 mL syringe 40 mg subcut DAILY Rx Instructions: ADMINISTER ONCE DAILY, LAST DOSE SCHEDULED FOR 08/11/2018 Bariatric Multivitamins 45 mg iron- 800 mcg-120 mcg Capsule 1 cap PO DAILY Referrals Referrals: Kayli Moore DO [Primary Care Provider] -
--- NOTE | 2022-11-19 12:51 | XRay Report ---
XR chest 1V portable HISTORY: 57 years-old Female Chest pain, nonspecific acute chest pain COMPARISON: 08/10/2018 TECHNIQUE: AP view of the chest FINDINGS: Cardiomediastinal and hilar silhouettes are within normal limits. No pneumothorax, pleural effusion, airspace consolidation or pulmonary edema. Bones appear grossly intact. IMPRESSION: No acute process. ACT 112: Negative or not required by law. The above report was generated using voice recognition software. It may contain grammatical, syntax o r spelling errors. Electronically signed by: David Smith M.D. 11/19/2022 12:49 PM
[2022-11-19 13:07] LABS: Basophils # (auto) 0.03 K/uL (0-0.2); Basophils % (auto) 0.5 %; Eosinophils % (auto) 1.7 %; Hemoglobin 13.1 g/dl (12.0-16.0); Immature Granulocytes # (auto) 0.03 K/uL (0.00-0.02); Immature Granulocytes % (auto) 0.5 %; Lymphocytes # (auto) 1.88 K/uL (1.2-3.4); Lymphocytes % (auto) 31.5 %; Mean Corpuscular Hemoglobin 31.5 pg (25.0-34.0); Mean Corpuscular Hgb Conc 33.6 g/dL (32.0-36.0); Mean Corpuscular Volume 93.8 fL (80.0-100.0); Mean Platelet Volume 10.1 fL (9.4-12.3); Monocytes # (auto) 0.53 K/uL (0.24-0.82); Monocytes % (auto) 8.9 %; Neutrophils % (auto) 56.9 %; Platelet Count 205 K/uL (130-400); RDW Coefficient of Variation 12.3 % (11.5-14.5); RDW Standard Deviation 42.9 fL (36.4-46.3); Red Blood Count 4.16 M/uL (3.93-5.22); White Blood Count 5.97 K/ul (4.8-10.8)
[2022-11-19 13:31] LABS: Alanine Aminotransferase 20 U/L (7-52); Albumin Globulin Ratio 1.3 (0.9-2); Albumin Level 3.9 gm/dl (3.4-5.0); Alkaline Phosphatase 74 U/L (34-104); Anion Gap 7 (3-11); BUN Creatinine Ratio 22.9 (10-20); Bilirubin,Total 0.8 mg/dl (0.2-1.0); Blood Urea Nitrogen 16 mg/dl (6-23); Calcium 8.7 mg/dl (8.5-10.1); Carbon Dioxide 28 mmol/L (21-32); Chloride 104 mmol/L (98-107); Est GFR (African American) 112.3 ml/min; Est GFR (Non-African American) 96.9 ml/min; Globulin 2.9 gm/dl (2.5-4.0); Glucose 85 mg/dl (70-99(Fasting)); Lipase 18 U/L (11-82); Partial Thromboplastin Time 27.3 Seconds (21.0-31.0); Prothrombin Time 10.5 Seconds (9.0-12.0); Sodium 139 mmol/L (136-145); Total Protein 6.8 gm/dl (6.0-8.3); Troponin I High Sensitivity < 2.3 pg/ml (0-14)
[2022-11-19 14:24] LABS: Potassium 3.5 mmol/L (3.5-5.1)
--- NOTE | 2022-11-19 14:40 | Electrocardiogram Report ---
Test Reason : Blood Pressure : / mmHG Vent. Rate : 068 BPM Atrial Rate : 068 BPM P-R Int : 146 ms QRS Dur : 082 ms QT Int : 414 ms P-R-T Axes : 034 007 005 degrees QTc Int : 440 ms Normal sinus rhythm Nonspecific ST abnormality Normal ECG When compared with ECG of 30-APR-2011 13:56, No significant change was found Confirmed by Marciano Sanders ([id number]) on 11/19/2022 2:40:04 PM Referred By: Confirmed By:Yair Sanders
--- NOTE | 2022-11-19 17:09 | History & Physical Report ---
Date of Service November 19, 2022 Assessment & Plan (1) Chest pain: (2) S/P gastric surgery: Plan This is a 57-year-old female with PMH of laparoscopic sleeve gastrectomy who presents with chest pain that developed this morning and is since resolved after nitro. Chest pain R/o ACS; risk factors include age but no known DM, HTN, HLD, fam hx Initial ECG obtained by EMS with nonspecific ST changes in inferior leads that resolved by time of repeat ECG in ED Initial troponin negative CXR with no acute process Trend serial cardiac enzymes Check 2d echo, routine cardiology consult, NPO after midnight in case of exercise stress test in AM Repeat EKG in am S/p gastric surgery Continue Childrens MV DVT Ppx: SQ heparin Code status: FULL PCP: Oscar Dispo: Obs PCU Patient seen in collaboration with Dr. Dutta. Please see addendum. History of Present Illness Chief Complaint: Chest pain Primary Care Provider: Kayli Moore, DO This is a 57-year-old female with PMH of laparoscopic sleeve gastrectomy who presents with chest pain. 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 Associated with shortness of breath and "difficulty speaking". Then resolved a moment or 2 later. Patient then moved into a public area for better visualization in case symptoms recurred again, which they did twice more. With colleague input, ambulance was called and patient came to ED for further evaluation. Denies any known cardiac history. No known history of diabetes or stroke. No chest pain in the past. Does have history of acid reflux but states this felt much different. Does take Pepcid every day. Denies any increased anxiety. Was given nitro in route and chest pain resolved. Remains chest pain- free. No fever, chills, lightheadedness, palpitations, nausea, vomiting, abdominal pain, dysuria, diarrhea or constipation. Allergies Allergy/AdvReac Type Severity Reaction Status Date / Time No Known Allergies Allergy Verified 03/04/17 13:26 Home Medications Medication Instructions Recorded Confirmed Type acetaminophen 500 mg tablet 1,000 mg PO Q6H PRN Pain 08/10/18 11/19/22 History cyclobenzaprine 10 mg tablet 10 mg PO DAILY PRN Muscle Spasm 08/10/18 11/19/22 History desogestrel 0.15 mg-ethinyl 1 tab PO DAILY 08/10/18 11/19/22 History estradiol 0.03 mg tablet enoxaparin 40 mg/0.4 mL 40 mg subcut DAILY 08/10/18 11/19/22 History subcutaneous syringe meclizine 25 mg tablet 25 mg PO TID PRN Dizziness 08/10/18 11/19/22 History omeprazole 20 mg capsule,delayed 20 mg PO DAILY 08/10/18 11/19/22 History release ondansetron HCl 4 mg tablet 4 mg PO Q8H PRN Nausea 08/10/18 11/19/22 History qajskxsr-pryakzvs-lvwx 45 mg-folic 1 cap PO DAILY 11/19/22 11/19/22 History acid 800 mcg-vit K 120 mcg capsule (Bariatric Multivitamins) Past Med/Surg History Medical History Kidney stones Surgical History (Updated 11/19/22 @ 18:16 by Margarette Su PA-C) History of gastric surgery S/P gastric surgery Family History (Updated 11/19/22 @ 18:15 by Margarette Su PA-C) Other Diabetes Social History Smoking Status: Smoker, status unknown Hx Alcohol Use: No Preferred Language: Kiswahili Current Living Situation: Family Feels Safe at Home: Yes Review of Systems Review of Systems: At least ten systems reviewed and negative except as noted in the HPI. Physical Exam Physical Exam: Please see Dr. Dutta's addendum for physical exam. Results & Data Results & Data ([facility]) Vital Signs (Past 12 Hours) Vital Signs Temp Pulse Pulse Resp BP BP Pulse Ox 11/19/22 15:02 70 18 105/70 97 11/19/22 13:30 61 15 95 11/19/22 13:30 95/57 L 11/19/22 13:00 59 L 16 95 11/19/22 13:00 93/64 L 11/19/22 12:47 68 23 96 11/19/22 12:47 101/66 11/19/22 12:36 72 17 91 11/19/22 12:03 97 11/19/22 12:27 97 11/19/22 12:03 36.8 C 71 18 142/81 H 97 O2 Del Method 11/19/22 15:02 Room Air 11/19/22 13:30 11/19/22 13:30 11/19/22 13:00 11/19/22 13:00 11/19/22 12:47 11/19/22 12:47 11/19/22 12:36 11/19/22 12:03 Room Air 11/19/22 12:27 Room Air 11/19/22 12:03 Laboratory Results Short CBC 11/19/22 Range/Units 12:38 WBC 5.97 (4.8-10.8) K/ul Hgb 13.1 (12.0-16.0) g/dl Hct 39.0 (34.1-44.9) % Plt Count 205 (130-400) K/uL BMP 11/19/22 11/19/22 12:38 12:38 Sodium 139 Potassium TNP 3.5 Chloride 104 Carbon Dioxide 28 BUN 16 Creatinine 0.70 Glucose 85 Calcium 8.7 Liver Function 11/19/22 11/19/22 Range/Units 12:38 12:38 Total Bilirubin 0.8 (0.2-1.0) mg/dl AST TNP 25 ALT 20 (7-52) U/L Alkaline Phosphatase 74 (34-104) U/L Albumin 3.9 (3.4-5.0) gm/dl Diagnostic Findings Chest X-Ray 11/19/22 12:27 XR chest 1V portable HISTORY: 57 years-old Female Chest pain, nonspecific acute chest pain COMPARISON: 08/10/2018 TECHNIQUE: AP view of the chest FINDINGS: Cardiomediastinal and hilar silhouettes are within normal limits. No pneumothorax, pleural effusion, airspace consolidation or pulmonary edema. Bones appear grossly intact. IMPRESSION: No acute process. ACT 112: Negative or not required by law. The above report was generated using voice recognition software. It may contain grammatical, syntax or spelling errors. Electronically signed by: David Smith M.D. 11/19/2022 12:49 PM Supervising Physician Co-Signing Physician Notes Pt is a 57 y/o F with hx of Gastric Sleeve and GERD admitted for acute onset of substernal CP. At bedside: pt denied any Acute CP, SOB, palpitation Denied any hx of HTN, HLD, chronic smoking or DMII. PE: NAD, well developed Lungs: CTA, no wheezing or crackles Cardiac: Normal S1/S2, no murmur Abd: ND, NT, soft MSK: no LE edema Psych: AAOx3, normal affect A/P: Chest pain with EKG changes: -EKG: TWI on Lead III (new compare to the old one) -initial trop is neg -will trend trop -echo tomorrow with NPO after MN -admit to tele -will get AM A1C and Lipid Agree with A/P by Margarette Su PA-C (1) Chest pain Chest pain type: unspecified Qualified Code(s): R07.9 - Chest pain, unspecified
[2022-11-19] MEDS ORDERED: ACETAMINOPHEN 325 MG TAB PO PRN (21:26)
[2022-11-19] MEDS ORDERED: ONDANSETRON INJ 2 MG/ML 2 ML VIAL IV PRN (21:26)
[2022-11-19] MEDS ORDERED: POLYETHYLENE (MIRALAX) 17 GM PACK PO PRN (21:26)
[2022-11-19] MEDS: HEPARIN SOD 5,000 UNIT/0.5 ML VIAL SQ SCH (23:30)
[2022-11-20] MEDS: HEPARIN SOD 5,000 UNIT/0.5 ML VIAL SQ SCH ×2 (05:30→14:01)
[2022-11-20 07:28] LABS: Hematocrit (blood only) 38.8 % (34.1-44.9); Hemoglobin 13.3 g/dl (12.0-16.0); Mean Corpuscular Hemoglobin 32.1 pg (25.0-34.0); Mean Corpuscular Hgb Conc 34.3 g/dL (32.0-36.0); Mean Corpuscular Volume 93.7 fL (80.0-100.0); Mean Platelet Volume 10.1 fL (9.4-12.3); Platelet Count 212 K/uL (130-400); RDW Coefficient of Variation 12.3 % (11.5-14.5); RDW Standard Deviation 42.5 fL (36.4-46.3); Red Blood Count 4.14 M/uL (3.93-5.22)
[2022-11-20 08:03] LABS: BUN Creatinine Ratio 20.9 (10-20); Calcium 8.8 mg/dl (8.5-10.1); Chol HDL Ratio 2.2 (0-5); Creatinine Clr Calc Pharmacy 96.5 ml/min; Est GFR (African American) 113.9 ml/min; Est GFR (Non-African American) 98.3 ml/min; Potassium 4.2 mmol/L (3.5-5.1)
[2022-11-20] MEDS ORDERED: MULTIVITAMIN CHEWABLE TAB PO SCH (09:00)
[2022-11-20] MEDS ORDERED: FAMOTIDINE 20 MG TAB PO SCH (09:00)
[2022-11-20 11:34] LABS: Estimated Average Glucose 94 mg/dl; Hemoglobin A1C 4.9 % (4.5-5.6)
--- NOTE | 2022-11-20 13:24 | Cardiology Consultation ---
Date of Consultation November 20, 2022 Assessment & Plan (1) Chest pain: (2) S/P gastric surgery: Plan As mentioned, I have reviewed the patient's EKGs and my interpretation would be that they are normal. She has had 3 high-sensitivity troponins all of which have been negative without a significant delta. Her echocardiogram is also unremarkable and shows no wall motion abnormalities that would suggest ischemic heart disease. Today the patient feels well. She does want to go home and I think that is reasonable and from our standpoint she can be discharged. She was exposed to a COVID-patient in the emergency department so she will have to isolate from work for total 5 days. If she should have a reoccurrence of chest pain she should come back to the emergency department. Otherwise I believe that she can follow-up with her PCP in a few weeks. History of Present Illness Attending Physician: Harrison Ornelas MD History of Present Illness This is a 57-year-old female with a history of gastric bypass surgery. No prior history of heart disease. She is a nondiabetic and does not smoke. She was in her usual state of good health. 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 She does have a history of reflux but she felt this discomfort was different. She is currently pain-free and feels well. Cardiac markers with high-sensitivity troponin are negative x3. My interpretation of the EKG is that it is normal. Her echocardiogram was also unremarkable. Allergies Allergy/AdvReac Type Severity Reaction Status Date / Time No Known Allergies Allergy Verified 03/04/17 13:26 Home Medications Medication Instructions Recorded Confirmed Type desogestrel 0.15 mg-ethinyl 1 tab PO DAILY 08/10/18 11/19/22 History estradiol 0.03 mg tablet famotidine 20 mg tablet (Pepcid) 20 mg PO DAILY 11/19/22 11/19/22 History pediatric multivitamin 1 tab PO DAILY 11/19/22 11/19/22 History Patient History Medical History Kidney stones Surgical History History of gastric surgery S/P gastric surgery Family History Other Diabetes Social History Smoking Status: Never smoker Hx Alcohol Use: Yes Alcohol type: wine and other Hx Substance Use: No Preferred Language: Kinyarwanda Communication Ability: Effective 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 All other 10 point review of systems are negative. Physical Exam Physical Exam: General: no acute distress and stated age Head: normocephalic, no masses, lesions, tenderness or abnormalities Eyes: conjunctiva are pink and non-injected, sclera clear Neck: supple, no adenopathy, no bruits, normal jugular venous pulse, no hepatojugular reflux Chest: normal shape and normal respiratory effort Lungs: clear to auscultation and percussion Cardiac Exam: - regular rate & rhythm, no murmurs gallops or rubs - normal S1, normal S2 Pulses: 2(+) throughout Abdomen: abdomen soft, non-tender, no abnormal masses and no hepatosplenomegaly Musculoskeletal: no gait disturbance, no joint inflammation, no deforming arthritis Extremities: no edema and no cyanosis Neuro: grossly normal exam Results & Data ([facility]) Vital Signs (Past 12 Hours) Vital Signs Temp Pulse Pulse Resp BP Pulse Ox O2 Del Method 11/20/22 11:37 36.8 C 65 17 105/72 95 Room Air 11/20/22 08:01 36.8 C 60 19 120/80 98 Room Air 11/20/22 05:00 68 11/20/22 04:56 36.6 C 61 18 112/73 98 Room Air Laboratory Results Laboratory Results - last 24 hr 11/19/22 11/19/22 11/19/22 12:38 12:38 12:38 WBC RBC Hgb Hct MCV MCH MCHC RDW Std Deviation RDW Coeff of Emma Plt Count MPV PT 10.5 INR 1.0 APTT 27.3 PTT Ratio 1.0 Sodium 139 Potassium TNP 3.5 Chloride 104 Carbon Dioxide 28 Anion Gap 7 BUN 16 Creatinine 0.70 Est Cr Clr Drug Dosing 93.0 Est GFR ( Amer) 112.3 Est GFR (Non-Af Amer) 96.9 BUN/Creatinine Ratio 22.9 H Glucose 85 Estimat Average Glucose Hemoglobin A1c Calcium 8.7 Total Bilirubin 0.8 AST TNP 25 ALT 20 Alkaline Phosphatase 74 Troponin I High Sens < 2.3 Total Protein 6.8 Albumin 3.9 Globulin 2.9 Albumin/Globulin Ratio 1.3 Triglycerides Cholesterol LDL Cholesterol, Calc VLDL Cholesterol, Calc HDL Cholesterol Cholesterol/HDL Ratio Lipase 18 SARS-CoV-2, RNA, NAAT 11/19/22 11/19/22 11/19/22 15:01 18:10 21:42 WBC RBC Hgb Hct MCV MCH MCHC RDW Std Deviation RDW Coeff of Emma Plt Count MPV PT INR APTT PTT Ratio Sodium Potassium Chloride Carbon Dioxide Anion Gap BUN Creatinine Est Cr Clr Drug Dosing Est GFR ( Amer) Est GFR (Non-Af Amer) BUN/Creatinine Ratio Glucose Estimat Average Glucose Hemoglobin A1c Calcium Total Bilirubin AST ALT Alkaline Phosphatase Troponin I High Sens < 2.3 < 2.3 Total Protein Albumin Globulin Albumin/Globulin Ratio Triglycerides Cholesterol LDL Cholesterol, Calc VLDL Cholesterol, Calc HDL Cholesterol Cholesterol/HDL Ratio Lipase SARS-CoV-2, RNA, NAAT NEGATIVE 11/20/22 11/20/22 11/20/22 07:06 07:06 07:06 WBC 6.30 RBC 4.14 Hgb 13.3 Hct 38.8 MCV 93.7 MCH 32.1 MCHC 34.3 RDW Std Deviation 42.5 RDW Coeff of Emma 12.3 Plt Count 212 MPV 10.1 PT INR APTT PTT Ratio Sodium 141 Potassium 4.2 Chloride 107 Carbon Dioxide 31 Anion Gap 3 BUN 14 Creatinine 0.67 Est Cr Clr Drug Dosing 96.5 Est GFR ( Amer) 113.9 Est GFR (Non-Af Amer) 98.3 BUN/Creatinine Ratio 20.9 H Glucose 84 Estimat Average Glucose 94 Hemoglobin A1c 4.9 Calcium 8.8 Total Bilirubin AST ALT Alkaline Phosphatase Troponin I High Sens Total Protein Albumin Globulin Albumin/Globulin Ratio Triglycerides 51 Cholesterol 157 LDL Cholesterol, Calc 75 VLDL Cholesterol, Calc 10 HDL Cholesterol 72 Cholesterol/HDL Ratio 2.2 Lipase SARS-CoV-2, RNA, NAAT Medications Administered Current Inpatient Medications Acetaminophen (Acetaminophen 325 Mg Tab) 650 mg PO Q4H PRN PRN Reason: Pain or Fever Stop: 12/19/22 21:25 Famotidine (Famotidine 20 Mg Tab) 20 mg PO DAILY [facility] Stop: 12/20/22 08:59 Last Admin: 11/20/22 08:36 Dose: 20 mg Heparin Sodium (Porcine) (Heparin Sod 5,000 Unit/0.5 Ml Vial) 5,000 units SQ Q8 TIFFANI Stop: 12/19/22 21:59 Last Admin: 11/20/22 05:30 Dose: Not Given Miscellaneous (Order Awaiting Action: Desogestrel-Ethinyl Estradiol 0.15-0.03 Mg Tablet) 1 each N/A QS [facility] Stop: 12/20/22 00:00 Multivitamins/Folic Acid/Vitamin C (Multivitamin Chewable Tab) 1 tab PO DAILY [facility] Stop: 12/20/22 08:59 Last Admin: 11/20/22 08:36 Dose: 1 tab Ondansetron HCl (Ondansetron Inj 2 Mg/Ml 2 Ml Vial) 4 mg IV Q6H PRN PRN Reason: Nausea Stop: 12/19/22 21:25 Polyethylene Glycol (Polyethylene (Miralax) 17 Gm Pack) 17 gm PO DAILY PRN PRN Reason: Constipation Stop: 12/19/22 21:25 (1) Chest pain Chest pain type: unspecified Qualified Code(s): R07.9 - Chest pain, unspecified
--- NOTE | 2022-11-20 14:04 | Hospitalist Progress Note ---
Date of Service November 20, 2022 Assessment & Plan (1) Chest pain: (2) S/P gastric surgery: Plan Patient is a 57 yr female with PMH of laparoscopic sleeve gastrectomy who presents with chest pain that developed this morning and is since resolved after nitro. Chest pain --CXR:No acute process. --Troponin X3 : Negative --ECHO: Left ventricle is normal in size. Left ventricle systolic function normal. EF 60 to 65%. Apical wall motion is normal. Right ventricle systolic function is normal. Left atrium size is normal. Right atrial size is normal. Mild mitral regurgitation. --Normal Lipid Panel --A1C: 4.9 --Appreciate Cardiology Input. Work up negative, Can be discharged home. COVID 19 Exposure CXR as above Asymptomatic CVOID Serology from 11/19/22: Negative S/p gastric surgery Continue home meds DVT Px: SQ heparin Code status: FULL CODE Admission and Anticipated Discharge Date Admission Date: November 19, 2022 Subjective Patient is seen and examined at bedside States feeling well today Chest, throat pain resolved Denies any dizziness, shortness of breath, nausea, abdominal pain, cough Saturating well on room air No other complaints Discussed with cardiology today Review of Systems Review of Systems: All systems reviewed & are unremarkable except as noted in Subjective Physical Exam Physical Exam: Physical Exam: Vitals signs as noted above General Appearance:Moderately built and nourished, no apparent distress Head: normocephalic, Atraumatic Eyes: normal inspection, EOMI Neck: supple, Trachea midline Respiratory/Chest: Normal breath sounds, CTA, No accessory muscle use Cardiovascular: S1, S2, No murmur Abdomen/GI:Soft, Non tender, Bowel sounds present Extremities/Musculoskeletal:normal inspection, no edema Neurologic/Psych:AAOX3, grossly no focal neurological deficits Skin: normal color, warm Results & Data Results & Data ([facility]) Vital Signs (Past 12 Hours) Vital Signs Temp Pulse Pulse Resp BP Pulse Ox O2 Del Method 11/20/22 11:37 36.8 C 65 17 105/72 95 Room Air 11/20/22 08:01 36.8 C 60 19 120/80 98 Room Air 11/20/22 05:00 68 11/20/22 04:56 36.6 C 61 18 112/73 98 Room Air Laboratory Results Short CBC 11/20/22 Range/Units 07:06 WBC 6.30 (4.8-10.8) K/ul Hgb 13.3 (12.0-16.0) g/dl Hct 38.8 (34.1-44.9) % Plt Count 212 (130-400) K/uL BMP 11/19/22 11/20/22 12:38 07:06 Sodium 141 Potassium 3.5 4.2 Chloride 107 Carbon Dioxide 31 BUN 14 Creatinine 0.67 Glucose 84 Calcium 8.8 Liver Function 11/19/22 Range/Units 12:38 AST 25 (13-39) U/L (1) Chest pain Chest pain type: unspecified Qualified Code(s): R07.9 - Chest pain, unspecified
--- NOTE | 2022-11-20 14:09 | Discharge Summary ---
Date of Service November 20, 2022 Admission HPI Per Admitting Provider This is a 57-year-old female with PMH of laparoscopic sleeve gastrectomy who presents with chest pain. 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 Associated with shortness of breath and "difficulty speaking". Then resolved a moment or 2 later. Patient then moved into a public area for better visualization in case symptoms recurred again, which they did twice more. With colleague input, ambulance was called and patient came to ED for further evaluation. Denies any known cardiac history. No known history of diabetes or stroke. No chest pain in the past. Does have history of acid reflux but states this felt much different. Does take Pepcid every day. Denies any increased anxiety. Was given nitro in route and chest pain resolved. Remains chest pain- free. No fever, chills, lightheadedness, palpitations, nausea, vomiting, abdominal pain, dysuria, diarrhea or constipation. Admission Exam Per Admitting Provider PE: NAD, well developed Lungs: CTA, no wheezing or crackles Cardiac: Normal S1/S2, no murmur Abd: ND, NT, soft MSK: no LE edema Psych: AAOx3, normal affect Principal Diagnosis Chest pain COVID-19 exposure Discharge Data Allergies Allergy/AdvReac Type Severity Reaction Status Date / Time No Known Allergies Allergy Verified 03/04/17 13:26 Consultations 11/19/22 17:01 ED Decision to Admit Stat 11/20/22 07:00 Consult Cardiology Routine Procedures Performed Laboratory Results WBC 6.30 K/ul (4.8-10.8) 11/20/22 07:06 RBC 4.14 M/uL (3.93-5.22) 11/20/22 07:06 Hgb 13.3 g/dl (12.0-16.0) 11/20/22 07:06 Hct 38.8 % (34.1-44.9) 11/20/22 07:06 MCV 93.7 fL (80.0-100.0) 11/20/22 07:06 MCH 32.1 pg (25.0-34.0) 11/20/22 07:06 MCHC 34.3 g/dL (32.0-36.0) 11/20/22 07:06 RDW Std Deviation 42.5 fL (36.4-46.3) 11/20/22 07:06 RDW Coeff of Emma 12.3 % (11.5-14.5) 11/20/22 07:06 Plt Count 212 K/uL (130-400) 11/20/22 07:06 MPV 10.1 fL (9.4-12.3) 11/20/22 07:06 Immature Gran % (Auto) 0.5 % 11/19/22 12:38 Neut % (Auto) 56.9 % 11/19/22 12:38 Lymph % (Auto) 31.5 % 11/19/22 12:38 [place] % (Auto) 8.9 % 11/19/22 12:38 Eos % (Auto) 1.7 % 11/19/22 12:38 Baso % (Auto) 0.5 % 11/19/22 12:38 Neut # (Auto) 3.40 K/uL (1.4-6.5) 11/19/22 12:38 Lymph # (Auto) 1.88 K/uL (1.2-3.4) 11/19/22 12:38 [place] # (Auto) 0.53 K/uL (0.24-0.82) 11/19/22 12:38 Eos # (Auto) 0.10 K/uL (0-0.50) 11/19/22 12:38 Baso # (Auto) 0.03 K/uL (0-0.2) 11/19/22 12:38 Immature Gran # (Auto) 0.03 K/uL (0.00-0.02) H 11/19/22 12:38 PT 10.5 Seconds (9.0-12.0) 11/19/22 12:38 INR 1.0 (0.9-1.1) 11/19/22 12:38 APTT 27.3 Seconds (21.0-31.0) 11/19/22 12:38 PTT Ratio 1.0 11/19/22 12:38 Sodium 141 mmol/L (136-145) 11/20/22 07:06 Potassium 4.2 mmol/L (3.5-5.1) 11/20/22 07:06 Chloride 107 mmol/L (98-107) 11/20/22 07:06 Carbon Dioxide 31 mmol/L (21-32) 11/20/22 07:06 Anion Gap 3 (3-11) 11/20/22 07:06 BUN 14 mg/dl (6-23) 11/20/22 07:06 Creatinine 0.67 mg/dl (0.6-1.2) 11/20/22 07:06 Est Cr Clr Drug Dosing 96.5 ml/min 11/20/22 07:06 Est GFR ( Amer) 113.9 ml/min 11/20/22 07:06 Est GFR (Non-Af Amer) 98.3 ml/min 11/20/22 07:06 BUN/Creatinine Ratio 20.9 (10-20) H 11/20/22 07:06 Glucose 84 mg/dl (70-99(Fasting)) 11/20/22 07:06 Estimat Average Glucose 94 mg/dl 11/20/22 07:06 Hemoglobin A1c 4.9 % (4.5-5.6) 11/20/22 07:06 Calcium 8.8 mg/dl (8.5-10.1) 11/20/22 07:06 Total Bilirubin 0.8 mg/dl (0.2-1.0) 11/19/22 12:38 AST 25 U/L (13-39) 11/19/22 12:38 AST TNP 11/19/22 12:38 ALT 20 U/L (7-52) 11/19/22 12:38 Alkaline Phosphatase 74 U/L (34-104) 11/19/22 12:38 Troponin I High Sens < 2.3 pg/ml (0-14) 11/19/22 21:42 Total Protein 6.8 gm/dl (6.0-8.3) 11/19/22 12:38 Albumin 3.9 gm/dl (3.4-5.0) 11/19/22 12:38 Globulin 2.9 gm/dl (2.5-4.0) 11/19/22 12:38 Albumin/Globulin Ratio 1.3 (0.9-2) 11/19/22 12:38 Triglycerides 51 mg/dl (0-150) 11/20/22 07:06 Cholesterol 157 mg/dl (0-200) 11/20/22 07:06 LDL Cholesterol, Calc 75 mg/dl 11/20/22 07:06 VLDL Cholesterol, Calc 10 mg/dl (0-30) 11/20/22 07:06 HDL Cholesterol 72 mg/dl 11/20/22 07:06 Cholesterol/HDL Ratio 2.2 (0-5) 11/20/22 07:06 Lipase 18 U/L (11-82) 11/19/22 12:38 SARS-CoV-2, RNA, NAAT NEGATIVE (NEGATIVE) 11/19/22 18:10 Impressions Chest X-Ray 11/19/22 12:27 XR chest 1V portable HISTORY: 57 years-old Female Chest pain, nonspecific acute chest pain COMPARISON: 08/10/2018 TECHNIQUE: AP view of the chest FINDINGS: Cardiomediastinal and hilar silhouettes are within normal limits. No pneumothorax, pleural effusion, airspace consolidation or pulmonary edema. Bones appear grossly intact. IMPRESSION: No acute process. ACT 112: Negative or not required by law. The above report was generated using voice recognition software. It may contain grammatical, syntax or spelling errors. Electronically signed by: David Smith M.D. 11/19/2022 12:49 PM Hospital Course (1) Chest pain: (2) S/P gastric surgery: Plan Patient is a 57 yr female with PMH of laparoscopic sleeve gastrectomy who presents with chest pain that developed this morning and is since resolved after nitro. Chest pain --CXR:No acute process. --Troponin X3 : Negative --ECHO: Left ventricle is normal in size. Left ventricle systolic function normal. EF 60 to 65%. Apical wall motion is normal. Right ventricle systolic function is normal. Left atrium size is normal. Right atrial size is normal. Mild mitral regurgitation. --Normal Lipid Panel --A1C: 4.9 --Appreciate Cardiology Input. Work up negative, Can be discharged home. COVID 19 Exposure CXR as above Asymptomatic CVOID Serology from 11/19/22: Negative S/p gastric surgery Continue home meds DVT Px: SQ heparin Code status: FULL CODE Total Time Total Time Spent Total Time Spent (In Minutes): 50 minutes Discharge Plan Discharge Items Patient Disposition: Home - Self-Care Reason For Visit: CP RULE OUT Discharge Diagnosis: Chest pain COVID-19 exposure Activity: Per Instructions section Exercise/Sports: Gradually increase as tolerated Non-emergency contact: Primary Care Provider Call non-emergency contact if: you have any medication questions, your symptoms worsen, your pain is concerning for you and you have a fever Follow-up/Referrals: Kayli Moore DO [Primary Care Provider] - (Date & Time 11/28/2022 3:00 PM Provider Kayli Moore DO Department [facility] ) Diet: Heart Healthy Addtl Attending Provider Instructions: Follow-up with your primary care physician on 11/28/2022 3:00 PM Follow-up with your post acute care nurse practitioner if you have recurrence of chest pain -- Consider getting repeat COVID screen on 11/23/22 (5 days from time of exposure) as recommended by infection control. Seek immediate medical attention if your symptoms reoccur or worsen Please take all medications as instructed on discharge list below. Please call if you have any questions or problems. You can reach a [facility] hospitalist on duty at [facility] 24 hours a day by calling [phone] Home Isolation COVID-19 Instructions The following information about Home Isolation is from the CDC Website: https://www.cdc.gov/coronavirus/2019-ncov/hcp/qvzwlbjq-cgujnqj-gkvllx.html Stay home except to get medical care People who are mildly ill with COVID-19 are able to isolate at home during their illness. You should restrict activities outside your home, except for getting medical care. Do not go to work, school, or public areas. Avoid using public transportation, ride-sharing, or taxis. Separate yourself from other people and animals in your home People: As much as possible, you should stay in a specific room and away from other people in your home. Also, you should use a separate bathroom, if available. Animals: You should restrict contact with pets and other animals while you are sick with COVID-19, just like you would around other people. Although there have not been reports of pets or other animals becoming sick with COVID-19, it is still recommended that people sick with COVID-19 limit contact with animals until more information is known about the virus. When possible, have another member of your household care for your animals while you are sick. If you are sick with COVID-19, avoid contact with your pet, including petting, snuggling, being kissed or licked, and sharing food. If you must care for your pet or be around animals while you are sick, wash your hands before and after you interact with pets and wear a face mask. Call ahead before visiting your doctor If you have a medical appointment, call the healthcare provider and tell them that you have or may have COVID-19. This will help the healthcare providers office take steps to keep other people from getting infected or exposed. Wear a face mask You should wear a face mask when you are around other people (e.g., sharing a room or vehicle) or pets and before you enter a healthcare providers office. If you are not able to wear a face mask (for example, because it causes trouble breathing), then people who live with you should not stay in the same room with you, or they should wear a face mask if they enter your room. Cover your coughs and sneezes Cover your mouth and nose with a tissue when you cough or sneeze. Throw used tissues in a lined trash can. Immediately wash your hands with soap and water for at least 20 seconds or, if soap and water are not available, clean your hands with an alcohol-based hand diamond wheel molder that contains at least 60% alcohol. Clean your hands often Wash your hands often with soap and water for at least 20 seconds, especially after blowing your nose, coughing, or sneezing; going to the bathroom; and before eating or preparing food. If soap and water are not readily available, use an alcohol-based hand diamond wheel molder with at least 60% alcohol, covering all surfaces of your hands and rubbing them together until they feel dry. Soap and water are the best option if hands are visibly dirty. Avoid touching your eyes, nose, and mouth with unwashed hands. Avoid sharing personal household items You should not share dishes, drinking glasses, cups, eating utensils, towels, or bedding with other people or pets in your home. After using these items, they should be washed thoroughly with soap and water. Clean all high-touch surfaces everyday High touch surfaces include counters, tabletops, doorknobs, bathroom fixtures, toilets, phones, keyboards, tablets, and bedside tables. Also, clean any surfaces that may have blood, stool, or body fluids on them. Use a household cleaning spray or wipe, according to the label instructions. Labels contain instructions for safe and effective use of the cleaning product including precautions you should take when applying the product, such as wearing gloves and making sure you have good ventilation during use of the product. Monitor your symptoms Seek prompt medical attention if your illness is worsening (e.g., difficulty breathing).Beforeseeking care, call your healthcare provider and tell them that you have, or are being evaluated for, COVID-19. Put on a face mask before you enter the facility. These steps will help the healthcare providers office to keep other people in the office or waiting room from getting infected or exposed. Ask your healthcare provider to call the local or state health department. Persons who are placed under active monitoring or facilitated self- monitoring should follow instructions provided by their local health department or occupational health professionals, as appropriate. When working with your local health department check their available hours. If you have a medical emergency and need to call 911, notify the dispatch personnel that you have, or are being evaluated for COVID-19. If possible, put on a face mask before emergency medical services arrive. Discontinuing home isolation Patients with confirmed COVID-19 should remain under home isolation precautions until the risk of secondary transmission to others is thought to be low. The decision to discontinue home isolation precautions should be made on a [id number] basis, in consultation with healthcare providers and [facility] and [facility] health departments. Pending Studies at Discharge: No Stand-Alone Forms: [facility], Smoking Cessation Medications and DC Order Prescriptions: Continued desogestrel-ethinyl estradiol [Apri] 0.15-0.03 mg tablet 1 tab PO DAILY Children's Chewable Tablet,Chewable 1 tab PO DAILY famotidine [Pepcid] 20 mg Tablet 20 mg PO DAILY Discharge Orders: Discharge Order (Routine); Ordered 11/20/22 Ordered By: Harrison Ornelas Admission Data Admit Date/Time: 11/19/22 17:16 Attending Provider: Harrison Ornelas Admit Provider: Maritza Dutta Primary Care Provider: Kayli Moore Other Providers: Maritza Dutta ; Danis Wood
== END 2022-11-20 15:58 | disposition home or self-care (01) ==
LOC: ED 12:17 → EDINP 12:17 → SUATTDRO 17:16 → 2S 21:36